=== PATIENT | male | born 1965 | race Asian ===

== ENCOUNTER 2018-01-14 08:04 | Emergency (ER) | payer MEDICAID ==
[~2018-01-14] VITALS: Ht 165.1 cm; Wt 78.6 kg
[~2018-01-14 08:04] MED LIST: DIVA500T69 PO; FLUD25I IM; LORA1TAB3 PO; OMEP20 PO; QUET100T PO; QUET200T PO
[2018-01-14 09:00] LABS: BASOPHILS % (AUTO) 0.4 % (0.0-2.0); EOSINOPHILS % (AUTO) 0.2 % (1.0-6.0); HEMATOCRIT 47.3 % (41-53); HEMOGLOBIN 16.5 g/dL (13.5-17.5); LYMPHOCYTES # (AUTO) 1.4 K/uL (1.0-4.8); LYMPHOCYTES % (AUTO) 15.1 % (22.0-44.0); MEAN CORPUSCULAR HEMOGLOBIN 31.3 pg (26.0-34.0); MEAN CORPUSCULAR HGB CONC 34.8 G/dL (31.0-37.0); MEAN CORPUSCULAR VOLUME 90 fL (80-100); MONOCYTES # (AUTO) 0.4 K/uL (0.1-1.0); MONOCYTES % (AUTO) 4.3 % (2.0-9.0); NEUTROPHILS # (AUTO) 7.5 K/uL (1.8-7.7); PLATELET COUNT (AUTO) 243 K/uL (150-450); RED BLOOD CELL COUNT(AUTO) 5.26 MIL/uL (4.50-5.90); RED CELL DISTRIBUTION WIDTH 13.7 % (11.5-14.5)
[2018-01-14 09:10] LABS: ANION GAP 9 mmol/L (8-16); CALCIUM, TOTAL 8.8 mg/dL (8.8-10.5); CARBON DIOXIDE 26 mmol/L (22-29); CHLORIDE 103 mmol/L (98-107); CREATININE 1.03 mg/dL (0.60-1.30); GLOMERULAR FILTR. RATE CALC > 60 mL/min (>60); GLUCOSE,RANDOM 133 mg/dL (70-110); SODIUM SERUM 138 mmol/L (136-145); UREA NITROGEN, BLOOD 10 mg/dL (7-18)
[2018-01-14 09:16] LABS: ALANINE AMINOTRANSFERASE 60 U/L (12-78); ALBUMIN 4.3 g/dL (3.4-5.0); ALKALINE PHOSPHATASE 128 U/L (46-116); ASPARTATE AMINOTRANSFERASE 22 U/L (15-37); BILIRUBIN,TOTAL 0.9 mg/dL (0.1-1.0); LIPASE 106 U/L (73-393); TOTAL PROTEIN, SERUM 8.4 g/dL (6.4-8.2)
[2018-01-14 09:17] LABS: BILIRUBIN,URINE NEGATIVE (NEGATIVE); GLUCOSE, URINE (UA) NEGATIVE (NEGATIVE); KETONES,URINE NEGATIVE (NEGATIVE); LEUKOCYTE ESTERASE ,URINE NEGATIVE (NEGATIVE); NITRATE,URINE NEGATIVE (NEGATIVE); OCCULT BLOOD,URINE MODERATE (NEGATIVE); PROTEIN,URINE TRACE (NEGATIVE); UROBILINOGEN,URINE 0.2 mg/dL (<=1.0)
[2018-01-14 09:20] LABS: APPEARANCE,URINE HAZY (CLEAR); BACTERIA,URINE Few /HPF (None Seen); WBC,URINE 0-2 /HPF (0-5)
[2018-01-14 09:21] LABS: SQUAMOUS EPITHELIAL CELL,UR Few /LPF (None Seen)
[2018-01-14] MEDS ORDERED: SODIUM CHLORIDE 0.9% 500 ML IV ONE (09:45)
[2018-01-14] MEDS ORDERED: PHENOBARB/HYOSCY/ATROPINE/SCOP 5 ML UDCUP ELIXIR PO ONE (11:45)
[2018-01-14 13:55] VITALS: BP 139/95
== END 2018-01-14 14:08 | disposition home or self-care (01) ==
LOC: EMS 08:05
DX: R14.0 Abdominal distension (gaseous) (principal); F17.210 Nicotine dependence, cigarettes, uncomplicated
CPT/HCPCS: 36415; 71045; 74176; 80053; 81001; 83690; 85025; 93005; 96360; 99285; J7040

== ENCOUNTER 2019-04-21 03:54 | Emergency (ER) | payer MEDICAID ==
[~2019-04-21] VITALS: Ht 167.6 cm; Wt 68.2 kg
[~2019-04-21 03:54] MED LIST changes: -DIVA500T69 PO; -FLUD25I IM; -LORA1TAB3 PO; -OMEP20 PO
[2019-04-21] MEDS ORDERED: ACETAMINOPHEN 500 MG TABLET PO ONE (04:15)
[2019-04-21] MEDS ORDERED: IBUPROFEN 600 MG TABLET PO ONE (04:15)
[2019-04-21 05:00] VITALS: BP 141/93
== END 2019-04-21 05:25 | disposition home or self-care (01) ==
LOC: EMS 03:55
DX: S76.112A Strain of left quadriceps muscle, fascia and tendon, initial encounter (principal); F41.9 Anxiety disorder, unspecified; F32.9 Major depressive disorder, single episode, unspecified; F20.9 Schizophrenia, unspecified; F17.210 Nicotine dependence, cigarettes, uncomplicated; Z88.5 Allergy status to narcotic agent; Z79.899 Other long term (current) drug therapy; X50.0XXA Overexertion from strenuous movement or load, initial encounter; Y93.89 Activity, other specified; Y92.89 Other specified places as the place of occurrence of the external cause; Y99.8 Other external cause status
CPT/HCPCS: 99406

== ENCOUNTER 2020-05-20 20:02 | Emergency (ER) | payer MEDICAID, OTHER ==
[~2020-05-20] VITALS: Ht 165.1 cm; Wt 68.2 kg
[2020-05-20] MEDS ORDERED: OLAN5TAB2 PO (20:12)
[2020-05-20 21:15] LABS: BASOPHILS % (AUTO) 0.3 % (0.0-2.0); EOSINOPHILS % (AUTO) 1.5 % (1.0-6.0); HEMATOCRIT 51.6 % (41-53); HEMOGLOBIN 17.5 g/dL (13.5-17.5); LYMPHOCYTES # (AUTO) 2.8 K/uL (1.0-4.8); LYMPHOCYTES % (AUTO) 29.3 % (22.0-44.0); MEAN CORPUSCULAR HEMOGLOBIN 31.3 pg (26.0-34.0); MEAN CORPUSCULAR HGB CONC 33.9 G/dL (31.0-37.0); MEAN CORPUSCULAR VOLUME 92 fL (80-100); MONOCYTES # (AUTO) 0.7 K/uL (0.1-1.0); MONOCYTES % (AUTO) 7.3 % (2.0-9.0); NEUTROPHILS # (AUTO) 5.9 K/uL (1.8-7.7); NEUTROPHILS % (AUTO) 61.6 % (40.0-70.0); PLATELET COUNT (AUTO) 265 K/uL (150-450); RED BLOOD CELL COUNT(AUTO) 5.59 MIL/uL (4.50-5.90); RED CELL DISTRIBUTION WIDTH 14.3 % (11.5-14.5)
[2020-05-20 21:27] LABS: ANION GAP 7 mmol/L (8-16); CALCIUM, TOTAL 9.5 mg/dL (8.8-10.5); CARBON DIOXIDE 31 mmol/L (22-29); CHLORIDE 100 mmol/L (98-107); CREATININE 1.15 mg/dL (0.60-1.30); GLOMERULAR FILTR. RATE CALC > 60 mL/min (>60); GLUCOSE,RANDOM 108 mg/dL (70-110); POTASSIUM 3.9 mmol/L (3.5-5.1); SODIUM SERUM 138 mmol/L (136-145); UREA NITROGEN, BLOOD 17 mg/dL (7-18)
[2020-05-20 21:37] LABS: ALANINE AMINOTRANSFERASE 31 U/L (12-78); ALBUMIN 4.1 g/dL (3.4-5.0); ALKALINE PHOSPHATASE 112 U/L (46-116); ASPARTATE AMINOTRANSFERASE 13 U/L (15-37); BILIRUBIN,TOTAL 0.3 mg/dL (0.1-1.0)
[2020-05-20 23:37] LABS: AMPHET/METH SCREEN,URINE NEGATIVE (NEGATIVE); BARBITURATE SCREEN, URINE NEGATIVE (NEGATIVE); BENZODIAZEPINES SCREEN,URINE NEGATIVE (NEGATIVE); CANNABINOID SCREEN,URINE NEGATIVE (NEGATIVE); COCAINE SCREEN,URINE NEGATIVE (NEGATIVE); METHADONE SCREEN, URINE NEGATIVE (NEGATIVE); OPIATE SCREEN,URINE NEGATIVE (NEGATIVE); PHENCYCLIDINE SCREEN,URINE NEGATIVE (NEGATIVE)
[2020-05-21 00:22] VITALS: BP 132/80
[2020-05-21] MEDS ORDERED: HydrOXYzine HCL 50 MG TABLET PO ONE (00:30)
== END 2020-05-21 00:41 | disposition home or self-care (01) ==
LOC: EMS 20:04
DX: G47.00 Insomnia, unspecified (principal); F41.9 Anxiety disorder, unspecified; F32.9 Major depressive disorder, single episode, unspecified; F20.9 Schizophrenia, unspecified; F17.210 Nicotine dependence, cigarettes, uncomplicated; Z88.8 Allergy status to other drugs, medicaments and biological substances
CPT/HCPCS: 36415; 80053; 80307; 85025; 99283; G0480

== ENCOUNTER 2020-10-03 12:53 | Emergency (ER) | payer OTHER ==
[~2020-10-03] VITALS: Ht 165.1 cm; Wt 75.0 kg
[~2020-10-03 12:53] MED LIST changes: +OLAN5TAB2 PO; -QUET100T PO; -QUET200T PO
[2020-10-03] MEDS ORDERED: OLANZapine 5 MG TABLET PO ONE (14:15)
[2020-10-03 14:19] LABS: BASOPHILS % (AUTO) 0.4 % (0.0-2.0); EOSINOPHILS % (AUTO) 0.6 % (1.0-6.0); HEMATOCRIT 48.5 % (41-53); HEMOGLOBIN 16.4 g/dL (13.5-17.5); LYMPHOCYTES # (AUTO) 1.3 K/uL (1.0-4.8); MEAN CORPUSCULAR HEMOGLOBIN 31.2 pg (26.0-34.0); MEAN CORPUSCULAR HGB CONC 33.8 G/dL (31.0-37.0); MEAN CORPUSCULAR VOLUME 92 fL (80-100); MONOCYTES # (AUTO) 0.5 K/uL (0.1-1.0); MONOCYTES % (AUTO) 5.3 % (2.0-9.0); NEUTROPHILS # (AUTO) 7.1 K/uL (1.8-7.7); NEUTROPHILS % (AUTO) 78.7 % (40.0-70.0); PLATELET COUNT (AUTO) 213 K/uL (150-450); RED BLOOD CELL COUNT(AUTO) 5.25 MIL/uL (4.50-5.90)
[2020-10-03 14:30] LABS: ANION GAP 13 mmol/L (8-16); CALCIUM, TOTAL 9.4 mg/dL (8.8-10.5); CARBON DIOXIDE 23 mmol/L (22-29); CHLORIDE 104 mmol/L (98-107); CREATININE 0.93 mg/dL (0.60-1.30); GLOMERULAR FILTR. RATE CALC > 60 mL/min (>60); GLUCOSE,RANDOM 127 mg/dL (70-110); POTASSIUM 4.1 mmol/L (3.5-5.1); SODIUM SERUM 140 mmol/L (136-145); UREA NITROGEN, BLOOD 16 mg/dL (7-18)
[2020-10-03 14:36] LABS: ALANINE AMINOTRANSFERASE 37 U/L (12-78); ALBUMIN 4.1 g/dL (3.4-5.0); ALKALINE PHOSPHATASE 107 U/L (46-116); ASPARTATE AMINOTRANSFERASE 18 U/L (15-37); BILIRUBIN,TOTAL 0.4 mg/dL (0.1-1.0); TOTAL PROTEIN, SERUM 8.1 g/dL (6.4-8.2)
[2020-10-03 14:48] LABS: AMPHET/METH SCREEN,URINE NEGATIVE (NEGATIVE); BARBITURATE SCREEN, URINE NEGATIVE (NEGATIVE); BENZODIAZEPINES SCREEN,URINE NEGATIVE (NEGATIVE); CANNABINOID SCREEN,URINE NEGATIVE (NEGATIVE); COCAINE SCREEN,URINE NEGATIVE (NEGATIVE); METHADONE SCREEN, URINE NEGATIVE (NEGATIVE); OPIATE SCREEN,URINE NEGATIVE (NEGATIVE)
[2020-10-03 14:49] LABS: PHENCYCLIDINE SCREEN,URINE NEGATIVE (NEGATIVE)
[2020-10-03 15:38] VITALS: BP 179/81
== END 2020-10-03 15:49 | disposition home or self-care (01) ==
LOC: EMS 12:57
DX: F20.0 Paranoid schizophrenia (principal)
CPT/HCPCS: 36415; 80053; 80307; 85025; 99284; G0480

== ENCOUNTER 2021-05-22 15:11 | Emergency (ER) | payer OTHER ==
[~2021-05-22] VITALS: Ht 170.2 cm; Wt 68.2 kg
[~2021-05-22 15:11] MED LIST changes: -OLAN5TAB2 PO; +OLAN5TAB52 PO
[2021-05-22 16:54] LABS: APPEARANCE,URINE CLEAR (CLEAR); BILIRUBIN,URINE NEGATIVE (NEGATIVE); GLUCOSE, URINE (UA) NEGATIVE (NEGATIVE); KETONES,URINE TRACE mg/dL (NEGATIVE); LEUKOCYTE ESTERASE ,URINE NEGATIVE (NEGATIVE); NITRATE,URINE NEGATIVE (NEGATIVE); OCCULT BLOOD,URINE NEGATIVE (NEGATIVE); PROTEIN,URINE NEGATIVE (NEGATIVE); UROBILINOGEN,URINE 0.2 mg/dL (<=1.0)
[2021-05-22 17:14] LABS: BACTERIA,URINE None Seen /HPF (None Seen); RBC,URINE None Seen /HPF (0-2); SQUAMOUS EPITHELIAL CELL,UR Rare /LPF (None Seen); WBC,URINE 0-2 /HPF (0-5)
[2021-05-22 17:19] LABS: AMPHET/METH SCREEN,URINE NEGATIVE (NEGATIVE); BARBITURATE SCREEN, URINE NEGATIVE (NEGATIVE); BENZODIAZEPINES SCREEN,URINE NEGATIVE (NEGATIVE); CANNABINOID SCREEN,URINE NEGATIVE (NEGATIVE); COCAINE SCREEN,URINE NEGATIVE (NEGATIVE); METHADONE SCREEN, URINE NEGATIVE (NEGATIVE); OPIATE SCREEN,URINE NEGATIVE (NEGATIVE)
[2021-05-22 17:20] LABS: PHENCYCLIDINE SCREEN,URINE NEGATIVE (NEGATIVE)
[2021-05-22 17:29] LABS: BASOPHILS % (AUTO) 0.3 % (0.0-2.0); EOSINOPHILS % (AUTO) 1.3 % (1.0-6.0); HEMATOCRIT 44.1 % (41-53); HEMOGLOBIN 14.8 g/dL (13.5-17.5); LYMPHOCYTES # (AUTO) 1.9 K/uL (1.0-4.8); LYMPHOCYTES % (AUTO) 27.5 % (22.0-44.0); MEAN CORPUSCULAR HEMOGLOBIN 31.4 pg (26.0-34.0); MEAN CORPUSCULAR HGB CONC 33.6 G/dL (31.0-37.0); MEAN CORPUSCULAR VOLUME 93 fL (80-100); MONOCYTES # (AUTO) 0.5 K/uL (0.1-1.0); MONOCYTES % (AUTO) 6.5 % (2.0-9.0); NEUTROPHILS # (AUTO) 4.6 K/uL (1.8-7.7); NEUTROPHILS % (AUTO) 64.4 % (40.0-70.0); PLATELET COUNT (AUTO) 210 K/uL (150-450); RED BLOOD CELL COUNT(AUTO) 4.72 MIL/uL (4.50-5.90); RED CELL DISTRIBUTION WIDTH 13.9 % (11.5-14.5)
[2021-05-22 17:42] LABS: ANION GAP 7 mmol/L (8-16); CALCIUM, TOTAL 9.1 mg/dL (8.8-10.5); CARBON DIOXIDE 29 mmol/L (22-29); CHLORIDE 104 mmol/L (98-107); CREATININE 0.96 mg/dL (0.60-1.30); GLOMERULAR FILTR. RATE CALC > 60 mL/min (>60); GLUCOSE,RANDOM 110 mg/dL (70-110); POTASSIUM 3.9 mmol/L (3.5-5.1); SODIUM SERUM 140 mmol/L (136-145); UREA NITROGEN, BLOOD 16 mg/dL (7-18)
[2021-05-22 17:58] VITALS: BP 159/95
[2021-05-22 18:06] LABS: ALANINE AMINOTRANSFERASE 49 U/L (12-78); ALBUMIN 3.9 g/dL (3.4-5.0); ALKALINE PHOSPHATASE 92 U/L (46-116); ASPARTATE AMINOTRANSFERASE 19 U/L (15-37); BILIRUBIN,TOTAL 0.3 mg/dL (0.1-1.0); CREATINE KINASE, TOTAL ONLY 134 U/L (39-308); TOTAL PROTEIN, SERUM 7.2 g/dL (6.4-8.2)
== END 2021-05-22 19:03 | disposition home or self-care (01) ==
LOC: EMS 15:13
DX: F98.8 Other specified behavioral and emotional disorders with onset usually occurring in childhood and adolescence (principal)
CPT/HCPCS: 36415; 80053; 80307; 81001; 82550; 84484; 85025; 99283; G0480

== ENCOUNTER 2021-05-24 09:56 | Emergency (ER) | payer OTHER ==
[~2021-05-24] VITALS: Ht 165.1 cm; Wt 68.2 kg
[2021-05-24 11:44] VITALS: BP 140/88
[2021-05-24 12:11] LABS: BASOPHILS % (AUTO) 0.3 % (0.0-2.0); EOSINOPHILS % (AUTO) 0.6 % (1.0-6.0); HEMATOCRIT 46.9 % (41-53); HEMOGLOBIN 15.9 g/dL (13.5-17.5); LYMPHOCYTES # (AUTO) 1.5 K/uL (1.0-4.8); MEAN CORPUSCULAR HGB CONC 33.9 G/dL (31.0-37.0); MEAN CORPUSCULAR VOLUME 94 fL (80-100); MONOCYTES # (AUTO) 0.4 K/uL (0.1-1.0); MONOCYTES % (AUTO) 5.5 % (2.0-9.0); NEUTROPHILS # (AUTO) 6.2 K/uL (1.8-7.7); NEUTROPHILS % (AUTO) 75.6 % (40.0-70.0); PLATELET COUNT (AUTO) 228 K/uL (150-450); RED BLOOD CELL COUNT(AUTO) 4.98 MIL/uL (4.50-5.90); RED CELL DISTRIBUTION WIDTH 13.8 % (11.5-14.5)
[2021-05-24 12:15] LABS: ANION GAP 7 mmol/L (8-16); CALCIUM, TOTAL 9.5 mg/dL (8.8-10.5); CARBON DIOXIDE 31 mmol/L (22-29); CHLORIDE 103 mmol/L (98-107); CREATININE 0.99 mg/dL (0.60-1.30); GLOMERULAR FILTR. RATE CALC > 60 mL/min (>60); GLUCOSE,RANDOM 122 mg/dL (70-110); POTASSIUM 5.1 mmol/L (3.5-5.1); SODIUM SERUM 141 mmol/L (136-145); UREA NITROGEN, BLOOD 22 mg/dL (7-18)
[2021-05-24 12:20] LABS: ALANINE AMINOTRANSFERASE 50 U/L (12-78); ALBUMIN 4.2 g/dL (3.4-5.0); ALKALINE PHOSPHATASE 109 U/L (46-116); ASPARTATE AMINOTRANSFERASE 15 U/L (15-37); BILIRUBIN,TOTAL 0.2 mg/dL (0.1-1.0); TOTAL PROTEIN, SERUM 8.2 g/dL (6.4-8.2)
[2021-05-24] MEDS ORDERED: QUEtiapine FUMARATE 100 MG TABLET PO ONE (13:15)
[2021-05-24 13:43] LABS: COVID AG,FIA SOURCE NASAL SWAB
== END 2021-05-24 14:07 | disposition home or self-care (01) ==
LOC: EMS 09:56
DX: F41.9 Anxiety disorder, unspecified (principal); F32.9 Major depressive disorder, single episode, unspecified; F20.9 Schizophrenia, unspecified; Z20.822 Contact with and (suspected) exposure to COVID-19; Z88.8 Allergy status to other drugs, medicaments and biological substances; Z87.891 Personal history of nicotine dependence
CPT/HCPCS: 36415; 80053; 85025; 87426; 99283; G0480

== ENCOUNTER 2021-05-27 19:07 | Emergency (ER) | payer OTHER ==
[~2021-05-27] VITALS: Ht 165.1 cm; Wt 68.2 kg
[2021-05-27 21:02] LABS: BASOPHILS % (AUTO) 0.3 % (0.0-2.0); EOSINOPHILS % (AUTO) 0.6 % (1.0-6.0); HEMATOCRIT 45.6 % (41-53); HEMOGLOBIN 15.2 g/dL (13.5-17.5); LYMPHOCYTES # (AUTO) 1.7 K/uL (1.0-4.8); LYMPHOCYTES % (AUTO) 18.6 % (22.0-44.0); MEAN CORPUSCULAR HEMOGLOBIN 31.2 pg (26.0-34.0); MEAN CORPUSCULAR HGB CONC 33.3 G/dL (31.0-37.0); MEAN CORPUSCULAR VOLUME 94 fL (80-100); MONOCYTES # (AUTO) 0.5 K/uL (0.1-1.0); MONOCYTES % (AUTO) 5.2 % (2.0-9.0); NEUTROPHILS # (AUTO) 6.7 K/uL (1.8-7.7); NEUTROPHILS % (AUTO) 75.3 % (40.0-70.0); PLATELET COUNT (AUTO) 225 K/uL (150-450); RED BLOOD CELL COUNT(AUTO) 4.87 MIL/uL (4.50-5.90); RED CELL DISTRIBUTION WIDTH 13.8 % (11.5-14.5)
[2021-05-27 21:11] LABS: ANION GAP 8 mmol/L (8-16); CALCIUM, TOTAL 8.7 mg/dL (8.8-10.5); CARBON DIOXIDE 30 mmol/L (22-29); CHLORIDE 105 mmol/L (98-107); CREATININE 1.07 mg/dL (0.60-1.30); GLOMERULAR FILTR. RATE CALC > 60 mL/min (>60); GLUCOSE,RANDOM 121 mg/dL (70-110); POTASSIUM 4.6 mmol/L (3.5-5.1); SODIUM SERUM 143 mmol/L (136-145); UREA NITROGEN, BLOOD 17 mg/dL (7-18)
[2021-05-27] MEDS ORDERED: QUEtiapine FUMARATE 100 MG TABLET PO ONE (21:15)
[2021-05-27 21:17] LABS: ALANINE AMINOTRANSFERASE 59 U/L (12-78); ALKALINE PHOSPHATASE 98 U/L (46-116); ASPARTATE AMINOTRANSFERASE 25 U/L (15-37); BILIRUBIN,TOTAL 0.5 mg/dL (0.1-1.0); TOTAL PROTEIN, SERUM 7.7 g/dL (6.4-8.2)
[2021-05-27 21:36] LABS: COVID AG,FIA SOURCE NASOPHARYNGEAL
[2021-05-27] MEDS ORDERED: LORazepam 1 MG TABLET PO ONE (22:30)
[2021-05-27 22:36] VITALS: BP 127/65
== END 2021-05-27 23:04 | disposition home or self-care (01) ==
LOC: EMS 19:42
DX: F20.9 Schizophrenia, unspecified (principal); Z20.822 Contact with and (suspected) exposure to COVID-19; F41.9 Anxiety disorder, unspecified
CPT/HCPCS: 36415; 80053; 85025; 87426; 99284; G0480

== ENCOUNTER 2021-06-27 21:07 | Emergency (ER) | payer OTHER ==
[~2021-06-27] VITALS: Ht 170.2 cm; Wt 68.2 kg
[2021-06-27] MEDS ORDERED: POTASSIUM CHLORIDE 20 MEQ ER TABLET PO ONE (23:15)
[2021-06-27] MEDS ORDERED: MAGNESIUM OXIDE 400 MG TABLET PO ONE (23:15)
[2021-06-27 23:30] VITALS: BP 141/84
== END 2021-06-27 23:50 | disposition home or self-care (01) ==
LOC: EMS 21:09
DX: R25.2 Cramp and spasm (principal); F32.9 Major depressive disorder, single episode, unspecified; F20.9 Schizophrenia, unspecified; F41.9 Anxiety disorder, unspecified; Z87.891 Personal history of nicotine dependence; Z88.8 Allergy status to other drugs, medicaments and biological substances
CPT/HCPCS: 99283

== ENCOUNTER 2022-06-18 16:03 | Emergency (ER) | payer OTHER ==
[~2022-06-18] VITALS: Ht 170.2 cm; Wt 68.2 kg
[2022-06-18 18:10] LABS: BASOPHILS % (AUTO) 0.3 % (0.0-2.0); EOSINOPHILS % (AUTO) 0.6 % (1.0-6.0); HEMATOCRIT 46.5 % (41-53); HEMOGLOBIN 15.4 g/dL (13.5-17.5); LYMPHOCYTES # (AUTO) 1.8 K/uL (1.0-4.8); LYMPHOCYTES % (AUTO) 20.3 % (22.0-44.0); MEAN CORPUSCULAR HGB CONC 33.2 G/dL (31.0-37.0); MEAN CORPUSCULAR VOLUME 93 fL (80-100); MONOCYTES # (AUTO) 0.5 K/uL (0.1-1.0); MONOCYTES % (AUTO) 5.8 % (2.0-9.0); NEUTROPHILS # (AUTO) 6.3 K/uL (1.8-7.7); PLATELET COUNT (AUTO) 213 K/uL (150-450); RED BLOOD CELL COUNT(AUTO) 4.99 MIL/uL (4.50-5.90); RED CELL DISTRIBUTION WIDTH 13.2 % (11.5-14.5)
[2022-06-18 18:19] LABS: ANION GAP 6 mmol/L (8-16); CALCIUM, TOTAL 9.5 mg/dL (8.8-10.5); CARBON DIOXIDE 31 mmol/L (22-29); CHLORIDE 102 mmol/L (98-107); CREATININE 1.05 mg/dL (0.60-1.30); GLUCOSE,RANDOM 131 mg/dL (70-110); POTASSIUM 3.9 mmol/L (3.5-5.1); SODIUM SERUM 139 mmol/L (136-145); UREA NITROGEN, BLOOD 20 mg/dL (7-18)
[2022-06-18 18:19] LABS: AMPHET/METH SCREEN,URINE NEGATIVE (NEGATIVE); BARBITURATE SCREEN, URINE NEGATIVE (NEGATIVE); BENZODIAZEPINES SCREEN,URINE NEGATIVE (NEGATIVE); CANNABINOID SCREEN,URINE NEGATIVE (NEGATIVE); COCAINE SCREEN,URINE NEGATIVE (NEGATIVE); METHADONE SCREEN, URINE NEGATIVE (NEGATIVE); OPIATE SCREEN,URINE NEGATIVE (NEGATIVE)
[2022-06-18 18:20] LABS: GLOMERULAR FILTR. RATE CALC > 60 mL/min (>60)
[2022-06-18 18:20] LABS: PHENCYCLIDINE SCREEN,URINE NEGATIVE (NEGATIVE)
[2022-06-18 18:24] LABS: ALANINE AMINOTRANSFERASE 23 U/L (12-78); ALBUMIN 4.1 g/dL (3.4-5.0); ALKALINE PHOSPHATASE 102 U/L (46-116); ASPARTATE AMINOTRANSFERASE 11 U/L (15-37); BILIRUBIN,TOTAL 0.2 mg/dL (0.1-1.0); TOTAL PROTEIN, SERUM 7.7 g/dL (6.4-8.2)
[2022-06-18] MEDS ORDERED: QUET200T PO (18:24)
[2022-06-18 18:34] VITALS: BP 133/90
== END 2022-06-18 19:00 | disposition home or self-care (01) ==
LOC: EMS 16:08
DX: F20.9 Schizophrenia, unspecified (principal); F17.210 Nicotine dependence, cigarettes, uncomplicated; Z88.8 Allergy status to other drugs, medicaments and biological substances; Z76.0 Encounter for issue of repeat prescription
CPT/HCPCS: 99283; 80053; 85025; 36415; 80307; G0480

== ENCOUNTER 2022-12-27 09:13 | Inpatient (IN) | payer MEDICAID ==
[~2022-12-27] VITALS: Ht 165.1 cm; Wt 77.2 kg
[~2022-12-27 09:13] MED LIST changes: +QUET200T PO
[2022-12-27] MEDS ORDERED: HALOPERIDOL 5 MG TABLET PO PRN (10:00)
[2022-12-27 10:01] LABS: GLUCOMETER DEV NAME(LOC) POC.BV
[2022-12-27] MEDS: LORazepam 2 MG TABLET PO PRN ×2 (11:11→20:06)
[2022-12-27] MEDS ORDERED: QUEtiapine FUMARATE 100 MG TABLET PO PRN (13:45)
[2022-12-27 14:14] VITALS: BP 141/77
[2022-12-27 16:06] VITALS: BP 134/82
[2022-12-27 18:06] LABS: GLUCOMETER DEV NAME(LOC) POC.BV
[2022-12-27] MEDS: QUEtiapine FUMARATE 200 MG TABLET PO SCH (20:06)
[2022-12-27 20:25] VITALS: BP 139/82
[2022-12-28] MEDS ORDERED: ACETAMINOPHEN 325 MG TABLET PO PRN (06:30)
[2022-12-28] MEDS ORDERED: LOPERAMIDE HCL 2 MG CAPSULE PO PRN (06:30)
[2022-12-28] MEDS ORDERED: ALBUTEROL SULFATE HFA 90 MCG/PUFF 8 GM INHALER IH PRN (06:30)
[2022-12-28] MEDS ORDERED: ONDANSETRON HCL 4 MG TABLET PO PRN (06:30)
[2022-12-28] MEDS ORDERED: NICOTINE 14 MG/24 HOUR PATCH TD PRN (06:30)
[2022-12-28] MEDS ORDERED: CloNIDine HCL 0.1 MG TABLET PO PRN (06:30)
[2022-12-28] MEDS ORDERED: DOCUSATE SODIUM 100 MG CAPSULE PO PRN (06:30)
[2022-12-28] MEDS ORDERED: GuaiFENesin/D-METHORPHAN [SUGAR-FREE] 200-20MG/10 ML SYRUP UDCUP PO PRN (06:30)
[2022-12-28] MEDS ORDERED: PETROLATUM,WHITE 28 GM JELLY TP PRN (06:30)
[2022-12-28] MEDS ORDERED: IBUPROFEN 400 MG TABLET PO PRN (06:30)
[2022-12-28] MEDS ORDERED: MAG HYDROX/AL HYDROX/SIMETH ES 30 ML SUSPENSION UDCUP PO PRN (06:30)
[2022-12-28] MEDS ORDERED: MAGNESIUM HYDROXIDE SUSPENSION 30 ML UDCUP PO PRN (06:30)
[2022-12-28 07:29] LABS: BASOPHILS % (AUTO) 0.5 % (0.0-2.0); EOSINOPHILS % (AUTO) 1.3 % (1.0-6.0); HEMATOCRIT 44.5 % (41-53); HEMOGLOBIN 14.6 g/dL (13.5-17.5); LYMPHOCYTES # (AUTO) 2.1 K/uL (1.0-4.8); LYMPHOCYTES % (AUTO) 31.3 % (22.0-44.0); MEAN CORPUSCULAR HEMOGLOBIN 30.7 pg (26.0-34.0); MEAN CORPUSCULAR HGB CONC 32.8 G/dL (31.0-37.0); MEAN CORPUSCULAR VOLUME 94 fL (80-100); MONOCYTES # (AUTO) 0.5 K/uL (0.1-1.0); MONOCYTES % (AUTO) 7.5 % (2.0-9.0); NEUTROPHILS # (AUTO) 3.9 K/uL (1.8-7.7); NEUTROPHILS % (AUTO) 59.4 % (40.0-70.0); PLATELET COUNT (AUTO) 193 K/uL (150-450); RED BLOOD CELL COUNT(AUTO) 4.75 MIL/uL (4.50-5.90); RED CELL DISTRIBUTION WIDTH 13.6 % (11.5-14.5)
[2022-12-28 08:01] LABS: ALANINE AMINOTRANSFERASE 30 U/L (12-78); ALBUMIN 3.4 g/dL (3.4-5.0); ALKALINE PHOSPHATASE 79 U/L (46-116); ANION GAP 6 mmol/L (8-16); ASPARTATE AMINOTRANSFERASE 12 U/L (15-37); BILIRUBIN,TOTAL 0.4 mg/dL (0.1-1.0); CALCIUM, TOTAL 8.9 mg/dL (8.8-10.5); CARBON DIOXIDE 30 mmol/L (22-29); CHLORIDE 103 mmol/L (98-107); CHOL/HDL RATIO 4.9 (4.2-7.3); CHOLESTEROL 199 mg/dL (131-200); CREATININE 0.78 mg/dL (0.60-1.30); FREE T4 (FREE THYROXINE) 1.07 ng/dL (0.76-1.46); GLOMERULAR FILTR. RATE CALC > 60 mL/min (>60); GLUCOSE,RANDOM 100 mg/dL (70-110); HDL CHOLESTEROL 41 mg/dL (40-60); LDL CHOL (CALC.) 101 mg/dL (0-130); POTASSIUM 4.1 mmol/L (3.5-5.1); SODIUM SERUM 139 mmol/L (136-145); THYROID STIMULATING HORMONE 0.95 uIU/mL (0.36-3.74); TOTAL PROTEIN, SERUM 6.8 g/dL (6.4-8.2); TRIGLYCERIDES 287 mg/dL (15-150)
[2022-12-28 08:07] VITALS: BP 138/87
[2022-12-28] MEDS: LORazepam 2 MG TABLET PO PRN ×2 (10:22→15:09)
[2022-12-28] MEDS: QUEtiapine FUMARATE 200 MG TABLET PO SCH (20:17)
[2022-12-28 20:18] VITALS: BP 107/72
[2022-12-29] MEDS: LORazepam 2 MG TABLET PO PRN ×2 (08:08→12:34)
[2022-12-29 09:15] VITALS: BP 105/63
[2022-12-29 12:28] LABS: APPEARANCE,URINE CLEAR (CLEAR); BILIRUBIN,URINE NEGATIVE (NEGATIVE); GLUCOSE, URINE (UA) >=1000 mg/dL (NEGATIVE); KETONES,URINE NEGATIVE (NEGATIVE); LEUKOCYTE ESTERASE ,URINE NEGATIVE (NEGATIVE); NITRATE,URINE NEGATIVE (NEGATIVE); OCCULT BLOOD,URINE NEGATIVE (NEGATIVE); PH,URINE 5.5 (5.0-8.0); PROTEIN,URINE NEGATIVE (NEGATIVE); SPECIFIC GRAVITIY, URINE 1.011 (1.003-1.030); UROBILINOGEN,URINE <=1.0 mg/dL (<=1.0)
[2022-12-29 12:42] LABS: AMPHET/METH SCREEN,URINE NEGATIVE (NEGATIVE); BARBITURATE SCREEN, URINE NEGATIVE (NEGATIVE); BENZODIAZEPINES SCREEN,URINE NEGATIVE (NEGATIVE); CANNABINOID SCREEN,URINE NEGATIVE (NEGATIVE); COCAINE SCREEN,URINE NEGATIVE (NEGATIVE); METHADONE SCREEN, URINE NEGATIVE (NEGATIVE); OPIATE SCREEN,URINE NEGATIVE (NEGATIVE); PHENCYCLIDINE SCREEN,URINE NEGATIVE (NEGATIVE)
[2022-12-29 12:54] LABS: BACTERIA,URINE None Seen /HPF (None Seen); RBC,URINE None Seen /HPF (0-2); WBC,URINE None Seen /HPF (0-5)
[2022-12-29] MEDS: QUEtiapine FUMARATE 200 MG TABLET PO SCH (20:28)
[2022-12-29] MEDS: ZOLPIDEM TARTRATE 10 MG TABLET PO PRN (20:28)
[2022-12-30] MEDS: LORazepam 2 MG TABLET PO PRN ×3 (08:15→20:51)
[2022-12-30 08:51] VITALS: BP 169/98
[2022-12-30 20:25] VITALS: BP 117/76
[2022-12-30] MEDS: ZOLPIDEM TARTRATE 10 MG TABLET PO PRN (20:51)
[2022-12-30] MEDS: QUEtiapine FUMARATE 200 MG TABLET PO SCH (20:54)
[2022-12-31 08:28] VITALS: BP 143/90
[2022-12-31 20:36] VITALS: BP 150/96
[2022-12-31] MEDS: QUEtiapine FUMARATE 200 MG TABLET PO SCH (21:18)
[2022-12-31 21:28] VITALS: BP 138/96
[2022-12-31] MEDS: LORazepam 2 MG TABLET PO PRN (21:31)
[2023-01-01 08:08] VITALS: BP 127/81
[2023-01-01] MEDS: LORazepam 2 MG TABLET PO PRN ×2 (16:14→20:14)
[2023-01-01 20:11] VITALS: BP 131/78
[2023-01-01] MEDS: QUEtiapine FUMARATE 200 MG TABLET PO SCH (20:13)
[2023-01-02 08:45] VITALS: BP 153/91
[2023-01-02] MEDS: LORazepam 2 MG TABLET PO PRN ×2 (16:10→20:28)
[2023-01-02] MEDS: QUEtiapine FUMARATE 200 MG TABLET PO SCH (20:28)
[2023-01-02 21:35] VITALS: BP 143/98
[2023-01-03] MEDS ORDERED: QUET200T30 PO (05:51)
[2023-01-03 08:31] VITALS: BP 152/81
== END 2023-01-03 12:45 | disposition home or self-care (01) | DRG 750 ==
LOC: B3A 10:15
PROVIDERS: ADMIT Psychiatry & Neurology Psychiatry; ATTEND Psychiatry & Neurology Psychiatry
DX: F20.0 Paranoid schizophrenia (principal); G47.00 Insomnia, unspecified; Z20.822 Contact with and (suspected) exposure to COVID-19; J44.9 Chronic obstructive pulmonary disease, unspecified; Z79.899 Other long term (current) drug therapy; Z81.8 Family history of other mental and behavioral disorders; Z88.8 Allergy status to other drugs, medicaments and biological substances
CPT/HCPCS: 80053; 80061; 80307; 81001; 83036; 84436; 84439; 84443; 85025; 86592; G0480

== ENCOUNTER 2023-09-23 04:02 | Inpatient (IN) | payer MEDICAID, OTHER ==
[~2023-09-23] VITALS: Ht 170.2 cm; Wt 71.0 kg
[~2023-09-23 04:02] MED LIST changes: -OLAN5TAB52 PO; -QUET200T PO; +QUET200T30 PO
[2023-09-23 04:48] LABS: PH,URINE DRUG SCREEN 6.5 (5.0-8.0)
[2023-09-23 04:51] LABS: AMPHET/METH SCREEN,URINE NEGATIVE (NEGATIVE); BARBITURATE SCREEN, URINE NEGATIVE (NEGATIVE); BENZODIAZEPINES SCREEN,URINE NEGATIVE (NEGATIVE); CANNABINOID SCREEN,URINE NEGATIVE (NEGATIVE); COCAINE SCREEN,URINE NEGATIVE (NEGATIVE); METHADONE SCREEN, URINE NEGATIVE (NEGATIVE); OPIATE SCREEN,URINE NEGATIVE (NEGATIVE); PHENCYCLIDINE SCREEN,URINE NEGATIVE (NEGATIVE)
[2023-09-23 04:52] LABS: ALCOHOL, URINE DRUG SCREEN NEGATIVE (NEGATIVE)
[2023-09-23] MEDS ORDERED: HALOPERIDOL LACTATE 5 MG/ML VIAL ONE (05:09)
[2023-09-23] MEDS ORDERED: DiphenhydrAMINE HCL 50 MG/ML VIAL ONE (05:09)
[2023-09-23] MEDS ORDERED: LORazepam 2 MG/ML VIAL ONE (05:09)
[2023-09-23 05:10] LABS: COVID AG,FIA SOURCE NASAL SWAB
[2023-09-23] MEDS: LORazepam 2 MG/ML VIAL IM ONE (05:21)
[2023-09-23] MEDS: DiphenhydrAMINE HCL 50 MG/ML VIAL IM ONE (05:22)
[2023-09-23] MEDS: HALOPERIDOL LACTATE 5 MG/ML VIAL IM ONE (05:27)
[2023-09-23 05:30] LABS: SARS-COV2 (COVID) ANTIGEN,FIA Negative (Negative)
[2023-09-23] MEDS ORDERED: LORazepam 1 MG TABLET PO PRN (05:45)
[2023-09-23 08:36] LABS: BASOPHILS % (AUTO) 0.2 % (0.0-2.0); EOSINOPHILS % (AUTO) 0.3 % (1.0-6.0); HEMATOCRIT 42.5 % (41-53); HEMOGLOBIN 14.2 g/dL (13.5-17.5); LYMPHOCYTES # (AUTO) 1.2 K/uL (1.0-4.8); LYMPHOCYTES % (AUTO) 13.6 % (22.0-44.0); MEAN CORPUSCULAR HEMOGLOBIN 31.2 pg (26.0-34.0); MEAN CORPUSCULAR HGB CONC 33.4 G/dL (31.0-37.0); MEAN CORPUSCULAR VOLUME 94 fL (80-100); MONOCYTES # (AUTO) 0.3 K/uL (0.1-1.0); MONOCYTES % (AUTO) 3.9 % (2.0-9.0); NEUTROPHILS # (AUTO) 7.2 K/uL (1.8-7.7); PLATELET COUNT (AUTO) 211 K/uL (150-450); RED BLOOD CELL COUNT(AUTO) 4.55 MIL/uL (4.50-5.90); RED CELL DISTRIBUTION WIDTH 13.3 % (11.5-14.5); WHITE BLOOD COUNT (AUTO) 8.8 K/uL (4.5-11.0)
[2023-09-23 08:48] LABS: ANION GAP 6 mmol/L (8-16); CARBON DIOXIDE 27 mmol/L (22-29); CHLORIDE 105 mmol/L (98-107); CREATININE 0.99 mg/dL (0.60-1.30); GLOMERULAR FILTR. RATE CALC > 60 mL/min (>60); GLUCOSE,RANDOM 107 mg/dL (70-110); POTASSIUM 3.7 mmol/L (3.5-5.1); SODIUM SERUM 138 mmol/L (136-145); UREA NITROGEN, BLOOD 17 mg/dL (7-18)
[2023-09-23 08:49] LABS: ALCOHOL, BLOOD (SERUM) < 3 mg/dL (0-10)
[2023-09-23 08:58] LABS: ALANINE AMINOTRANSFERASE 21 U/L (12-78); ALBUMIN 3.6 g/dL (3.4-5.0); ALKALINE PHOSPHATASE 79 U/L (46-116); ASPARTATE AMINOTRANSFERASE 17 U/L (15-37); BILIRUBIN,TOTAL 0.3 mg/dL (0.1-1.0); TOTAL PROTEIN, SERUM 6.8 g/dL (6.4-8.2)
[2023-09-23] MEDS: LORazepam 2 MG TABLET PO PRN (12:08)
[2023-09-23] MEDS: BENZONATATE 100 MG CAPSULE PO ONE (19:48)
[2023-09-23] MEDS: AmLODIPine BESYLATE 10 MG TABLET PO ONE (23:24)
[2023-09-24 03:49] VITALS: BP 121/100; PULSE 93; RESP 18; TEMP 98; O2SAT 96
[2023-09-24] MEDS: INFLUENZA VIRUS VACCINE QVS 2023-24 (6MO+)/PF 60 MCG/0.5 ML SYRINGE IM. ONE (04:15)
[2023-09-24] MEDS: PNEUMOCOCCAL VACCINE POLYVALENT 0.5 ML SYRINGE [PPSV23] IM. ONE (04:15)
[2023-09-24] MEDS ORDERED: IBUPROFEN 400 MG TABLET PO PRN (06:30)
[2023-09-24] MEDS ORDERED: LOPERAMIDE HCL 2 MG CAPSULE PO PRN (06:30)
[2023-09-24] MEDS ORDERED: ACETAMINOPHEN 325 MG TABLET PO PRN (06:30)
[2023-09-24] MEDS ORDERED: ONDANSETRON HCL 4 MG TABLET PO PRN (06:30)
[2023-09-24] MEDS ORDERED: MAG HYDROX/ALUMINUM HYD/SIMETH ES 30 ML SUSPENSION UDCUP PO PRN (06:30)
[2023-09-24] MEDS ORDERED: CloNIDine HCL 0.1 MG TABLET PO PRN (06:30)
[2023-09-24] MEDS ORDERED: DOCUSATE SODIUM 100 MG CAPSULE PO PRN (06:30)
[2023-09-24] MEDS ORDERED: NICOTINE 14 MG/24 HOUR PATCH TD PRN (06:30)
[2023-09-24] MEDS ORDERED: GuaiFENesin/D-METHORPHAN [SUGAR-FREE] 200-20MG/10 ML SYRUP UDCUP PO PRN (06:30)
[2023-09-24] MEDS ORDERED: PETROLATUM,WHITE 28 GM JELLY TP PRN (06:30)
[2023-09-24] MEDS ORDERED: MAGNESIUM HYDROXIDE SUSPENSION 30 ML UDCUP PO PRN (06:30)
[2023-09-24 08:38] VITALS: BP 145/95; PULSE 95; RESP 18; TEMP 97.5; O2SAT 96
[2023-09-24] MEDS: QUEtiapine FUMARATE 25 MG TABLET PO SCH (10:18)
[2023-09-24 20:14] VITALS: BP 131/82; PULSE 98; RESP 18; TEMP 97.9; O2SAT 98
[2023-09-24] MEDS: QUEtiapine FUMARATE 200 MG TABLET PO SCH (21:40)
[2023-09-25 08:39] VITALS: BP 145/82; PULSE 74; RESP 18; TEMP 98.2; O2SAT 95
[2023-09-25 20:12] VITALS: BP 116/63; PULSE 81; RESP 20; TEMP 97.1; O2SAT 94
[2023-09-26] MEDS: ALBUTEROL SULFATE HFA 90 MCG/PUFF 8 GM INHALER IH PRN (03:20)
[2023-09-26 08:30] VITALS: BP 116/91; PULSE 84; RESP 17; TEMP 97.7; O2SAT 98
[2023-09-26 20:44] VITALS: BP 124/78; PULSE 78; RESP 20; TEMP 97.6; O2SAT 98
[2023-09-27 00:19] VITALS: BP 119/75; PULSE 80; RESP 18; TEMP 97.7; O2SAT 96
[2023-09-27 08:21] VITALS: BP 128/76; PULSE 67; RESP 18; TEMP 98; O2SAT 98
[2023-09-27 20:47] VITALS: BP 150/87; PULSE 81; RESP 18; TEMP 98.2; O2SAT 95
[2023-09-28 08:11] VITALS: BP 126/80; PULSE 87; RESP 18; TEMP 98; O2SAT 100
[2023-09-28] MEDS: NICOTINE 7 MG/24 HOUR PATCH TD PRN (16:01)
[2023-09-28 20:00] VITALS: BP 124/83; PULSE 86; RESP 18; TEMP 97.4; O2SAT 95
[2023-09-29 08:14] VITALS: BP 132/93; PULSE 85; RESP 18; TEMP 98; O2SAT 95
[2023-09-30 00:15] VITALS: BP 153/94; PULSE 80; RESP 18; TEMP 96.9; O2SAT 96
[2023-09-30 08:36] VITALS: BP 148/88; PULSE 80; RESP 20; TEMP 97.4; O2SAT 99
[2023-09-30 20:26] VITALS: BP 131/80; PULSE 84; RESP 20; TEMP 97.2; O2SAT 94
[2023-10-01 08:28] VITALS: BP 151/113; PULSE 76; RESP 16; TEMP 97.4; O2SAT 99
[2023-10-01 20:25] VITALS: BP 115/76; PULSE 84; RESP 17; TEMP 97.8; O2SAT 98
[2023-10-02 08:26] VITALS: BP 145/97; PULSE 81; RESP 18; TEMP 97.7; O2SAT 98
[2023-10-02] MEDS ORDERED: QUET50TA15 PO (12:02)
[2023-10-02] MEDS ORDERED: QUET25TA36 PO (13:09)
== END 2023-10-02 13:10 | disposition home or self-care (01) | DRG 750 ==
LOC: EMS 04:04 → B2S 17:22
PROVIDERS: ADMIT Psychiatry & Neurology Psychiatry; ATTEND Psychiatry & Neurology Psychiatry
PROC: GZHZZZZ Group Psychotherapy (ICD-10-PCS; principal; 2023-09-25)
DX: F20.0 Paranoid schizophrenia (principal); F17.210 Nicotine dependence, cigarettes, uncomplicated; F41.9 Anxiety disorder, unspecified; Z20.822 Contact with and (suspected) exposure to COVID-19; G47.00 Insomnia, unspecified; J44.9 Chronic obstructive pulmonary disease, unspecified; Z79.899 Other long term (current) drug therapy; Z88.8 Allergy status to other drugs, medicaments and biological substances
CPT/HCPCS: 80053; 80307; 85025; G0480; J1200; J1630; J2060; J3535

== ENCOUNTER 2023-10-05 21:36 | Inpatient (IN) | payer MEDICAID, OTHER ==
[~2023-10-05] VITALS: Ht 170.2 cm; Wt 74.6 kg
[~2023-10-05 21:36] MED LIST changes: +QUET25TA36 PO; +QUET50TA15 PO
[2023-10-05 22:07] LABS: PH,URINE DRUG SCREEN 5.5 (5.0-8.0)
[2023-10-05 22:14] LABS: ALCOHOL, URINE DRUG SCREEN NEGATIVE (NEGATIVE); AMPHET/METH SCREEN,URINE NEGATIVE (NEGATIVE); BARBITURATE SCREEN, URINE NEGATIVE (NEGATIVE); BENZODIAZEPINES SCREEN,URINE NEGATIVE (NEGATIVE); CANNABINOID SCREEN,URINE NEGATIVE (NEGATIVE); COCAINE SCREEN,URINE NEGATIVE (NEGATIVE); METHADONE SCREEN, URINE NEGATIVE (NEGATIVE); OPIATE SCREEN,URINE NEGATIVE (NEGATIVE); PHENCYCLIDINE SCREEN,URINE NEGATIVE (NEGATIVE)
[2023-10-05 23:24] LABS: COVID AG,FIA SOURCE NASAL SWAB
[2023-10-05 23:41] LABS: SARS-COV2 (COVID) ANTIGEN,FIA Negative (Negative)
[2023-10-06 00:55] LABS: ANION GAP 9 mmol/L (8-16); CALCIUM, TOTAL 8.9 mg/dL (8.8-10.5); CARBON DIOXIDE 26 mmol/L (22-29); CHLORIDE 104 mmol/L (98-107); CREATININE 0.84 mg/dL (0.60-1.30); GLOMERULAR FILTR. RATE CALC > 60 mL/min (>60); GLUCOSE,RANDOM 120 mg/dL (70-110); POTASSIUM 3.9 mmol/L (3.5-5.1); SODIUM SERUM 139 mmol/L (136-145); UREA NITROGEN, BLOOD 20 mg/dL (7-18)
[2023-10-06 01:01] LABS: ALANINE AMINOTRANSFERASE 35 U/L (12-78); ALBUMIN 3.6 g/dL (3.4-5.0); ALKALINE PHOSPHATASE 101 U/L (46-116); ASPARTATE AMINOTRANSFERASE 14 U/L (15-37); BILIRUBIN,TOTAL 0.4 mg/dL (0.1-1.0); TOTAL PROTEIN, SERUM 7.5 g/dL (6.4-8.2)
[2023-10-06 01:15] LABS: ALCOHOL, BLOOD (SERUM) < 3 mg/dL (0-10)
[2023-10-06 01:31] LABS: BASOPHILS % (AUTO) 0.3 % (0.0-2.0); LYMPHOCYTES # (AUTO) 1.4 K/uL (1.0-4.8); MEAN CORPUSCULAR HEMOGLOBIN 31.3 pg (26.0-34.0); MONOCYTES # (AUTO) 0.4 K/uL (0.1-1.0); NEUTROPHILS # (AUTO) 5.6 K/uL (1.8-7.7); RED CELL DISTRIBUTION WIDTH 13.6 % (11.5-14.5); WHITE BLOOD COUNT (AUTO) 7.5 K/uL (4.5-11.0)
[2023-10-06 01:36] LABS: HEMATOCRIT 42.9 % (41-53); HEMOGLOBIN 14.4 g/dL (13.5-17.5); LYMPHOCYTES % (AUTO) 18.7 % (22.0-44.0); MEAN CORPUSCULAR HGB CONC 33.6 G/dL (31.0-37.0); MEAN CORPUSCULAR VOLUME 93 fL (80-100); MONOCYTES % (AUTO) 5.2 % (2.0-9.0); NEUTROPHILS % (AUTO) 74.8 % (40.0-70.0); PLATELET COUNT (AUTO) 220 K/uL (150-450)
[2023-10-06] MEDS: ZOLPIDEM TARTRATE 10 MG TABLET PO PRN (03:38)
[2023-10-06 03:43] VITALS: BP 113/54; PULSE 82; RESP 18; TEMP 97
[2023-10-06 11:05] VITALS: BP 140/81; PULSE 81; RESP 16; TEMP 98
[2023-10-06] MEDS: QUEtiapine FUMARATE 100 MG TABLET PO SCH (12:51)
[2023-10-06] MEDS ORDERED: PETROLATUM,WHITE 28 GM JELLY TP PRN (20:00)
[2023-10-06] MEDS ORDERED: LOPERAMIDE HCL 2 MG CAPSULE PO PRN (20:00)
[2023-10-06] MEDS ORDERED: ALBUTEROL SULFATE HFA 90 MCG/PUFF 8 GM INHALER IH PRN (20:00)
[2023-10-06] MEDS ORDERED: MAG HYDROX/ALUMINUM HYD/SIMETH ES 30 ML SUSPENSION UDCUP PO PRN (20:00)
[2023-10-06] MEDS ORDERED: MAGNESIUM HYDROXIDE SUSPENSION 30 ML UDCUP PO PRN (20:00)
[2023-10-06] MEDS ORDERED: OMEPRAZOLE 20 MG CAPSULE PO PRN (20:00)
[2023-10-06] MEDS ORDERED: BENZOCAINE/MENTHOL LOZENGE PO PRN (20:00)
[2023-10-06] MEDS ORDERED: BACITRACIN 28 GM OINTMENT TP PRN (20:00)
[2023-10-06] MEDS ORDERED: CloNIDine HCL 0.1 MG TABLET PO PRN (20:00)
[2023-10-06] MEDS ORDERED: ONDANSETRON HCL 4 MG TABLET PO PRN (20:00)
[2023-10-06] MEDS ORDERED: DOCUSATE SODIUM 100 MG CAPSULE PO PRN (20:00)
[2023-10-06] MEDS: QUEtiapine FUMARATE 200 MG TABLET PO SCH (20:52)
[2023-10-06 21:41] VITALS: BP 138/82; PULSE 84; RESP 18; TEMP 98.2; O2SAT 98
[2023-10-07 09:06] VITALS: BP 138/87; PULSE 78; RESP 18; TEMP 98.5; O2SAT 98
[2023-10-07 21:37] VITALS: BP 149/86; PULSE 79; RESP 16; TEMP 98.2; O2SAT 96
[2023-10-08 11:25] VITALS: BP 119/70; PULSE 80; RESP 17; TEMP 98.4; O2SAT 80
[2023-10-08 23:14] VITALS: BP 130/90; PULSE 96; RESP 18; TEMP 97.7; O2SAT 98
[2023-10-09 10:33] VITALS: BP 147/92; PULSE 81; RESP 18; TEMP 97.1; O2SAT 98
[2023-10-09 20:41] VITALS: BP 156/90; PULSE 78; RESP 18; TEMP 98; O2SAT 96
[2023-10-10 09:12] VITALS: BP 162/93; PULSE 85; RESP 17; TEMP 97.4; O2SAT 99
[2023-10-10 22:23] VITALS: BP_SYST 114; BP_SYST 162; BP_DIAS 88; BP_DIAS 93; PULSE 82; PULSE 85; RESP 17; RESP 18; TEMP 97; TEMP 97.4; O2SAT 98; O2SAT 99
[2023-10-11 08:00] VITALS: BP 161/94; PULSE 60; RESP 18; TEMP 97.1; O2SAT 99
[2023-10-11 23:30] VITALS: RESP 18
[2023-10-12 09:37] VITALS: TEMP 97.2
[2023-10-12 21:46] VITALS: BP 109/86; PULSE 73; RESP 18; TEMP 97.4; O2SAT 95
[2023-10-13 09:33] VITALS: BP 155/95; PULSE 77; RESP 17; TEMP 97.6; O2SAT 97
[2023-10-13 21:04] VITALS: BP 141/87; PULSE 85; RESP 19; TEMP 97.1; O2SAT 98
[2023-10-14 10:31] VITALS: BP 159/96; PULSE 72; RESP 19; TEMP 97.9; O2SAT 100
[2023-10-14 21:40] VITALS: BP 125/82; PULSE 69; RESP 18; TEMP 98.3; O2SAT 99
[2023-10-15 10:41] VITALS: BP 145/70; PULSE 81; RESP 17; TEMP 97.9; O2SAT 98
[2023-10-15 21:13] VITALS: BP 142/86; PULSE 78; RESP 18; TEMP 97.8; O2SAT 98
[2023-10-16 09:00] VITALS: BP 136/94; PULSE 85; RESP 18; TEMP 96.6; O2SAT 97
[2023-10-16 21:35] VITALS: BP 132/84; PULSE 86; RESP 18; TEMP 97.1; O2SAT 97
[2023-10-17 08:00] VITALS: RESP 18
[2023-10-17] MEDS: TUBERCULIN, PURIFIED PROTEIN DERIVATIVE 5 TU/0.1 ML SYRINGE ID ONE (13:46)
[2023-10-17 17:27] VITALS: BP 123/65; PULSE 78; RESP 18; TEMP 98.3; O2SAT 98
[2023-10-17] MEDS: ACETAMINOPHEN 325 MG TABLET PO PRN (17:27)
[2023-10-17 20:45] VITALS: BP 128/81; PULSE 82; RESP 19; TEMP 97.9; O2SAT 98
[2023-10-17 21:48] VITALS: RESP 18; TEMP 97.2
[2023-10-17 22:54] VITALS: BP 140/82; PULSE 75; RESP 20; TEMP 97.6; O2SAT 95
[2023-10-18 10:02] VITALS: BP 136/85; PULSE 80; RESP 18; O2SAT 96
[2023-10-18 20:15] VITALS: BP 146/86; PULSE 98; RESP 18; TEMP 97.1; O2SAT 98
[2023-10-18 21:11] VITALS: BP 110/64; PULSE 98; RESP 18; TEMP 97; O2SAT 96
[2023-10-18] MEDS: IBUPROFEN 600 MG TABLET PO PRN (21:14)
[2023-10-18 22:14] VITALS: RESP 18
[2023-10-19 08:00] VITALS: RESP 18
[2023-10-19] MEDS ORDERED: HALOPERIDOL LACTATE 5 MG/ML VIAL IM PRN (14:00)
[2023-10-19 15:37] VITALS: RESP 18
[2023-10-19 16:37] VITALS: RESP 18
[2023-10-19] MEDS: LORazepam 1 MG TABLET PO PRN (20:30)
[2023-10-19 21:15] VITALS: BP 129/89; PULSE 84; RESP 18; TEMP 97.8; O2SAT 98
[2023-10-20 09:48] VITALS: BP 132/86; PULSE 98; RESP 18; TEMP 97.4
[2023-10-20 22:17] VITALS: RESP 18; TEMP 97
[2023-10-21 10:30] VITALS: BP 154/92; PULSE 74; RESP 18; TEMP 97.4; O2SAT 98
[2023-10-21 20:09] VITALS: BP 125/85; PULSE 88; RESP 18; TEMP 97.7; O2SAT 97
[2023-10-22] MEDS: HALOPERIDOL LACTATE 5 MG/ML VIAL IM ONE (09:46)
[2023-10-22] MEDS: LORazepam 2 MG/ML VIAL IM ONE (09:46)
[2023-10-22] MEDS: DiphenhydrAMINE HCL 50 MG/ML VIAL IM ONE (09:46)
[2023-10-22] MEDS ORDERED: LORazepam 2 MG/ML VIAL ONE (09:47)
[2023-10-22 10:05] VITALS: BP 117/70; PULSE 70; RESP 18; TEMP 97.6; O2SAT 100
[2023-10-22 21:26] VITALS: BP 125/80; PULSE 96; RESP 18; TEMP 97.3; O2SAT 99
[2023-10-23 08:30] VITALS: BP 147/97; PULSE 74; RESP 18; TEMP 97.5; O2SAT 98
[2023-10-23] MEDS: QUEtiapine FUMARATE 200 MG TABLET PO SCH (20:52)
[2023-10-23 21:45] VITALS: BP 121/91; PULSE 92; RESP 18; TEMP 97.1; O2SAT 98
[2023-10-24 08:49] VITALS: BP 136/86; PULSE 83; RESP 18; TEMP 97.5; O2SAT 100
[2023-10-24 20:17] VITALS: BP 122/75; PULSE 81; RESP 18; TEMP 97.5; O2SAT 96
[2023-10-25 09:35] VITALS: BP 153/82; PULSE 83; RESP 18; TEMP 97
[2023-10-25 10:35] VITALS: BP 126/65; PULSE 95; RESP 18; TEMP 97
[2023-10-25 20:34] VITALS: BP 147/75; PULSE 88; RESP 18; TEMP 97.9; O2SAT 96
[2023-10-26] MEDS: ARIPiprazole 10 MG TABLET PO SCH (09:05)
[2023-10-26 09:28] VITALS: BP 145/88; PULSE 81; RESP 18; TEMP 97.9; O2SAT 96
[2023-10-26] MEDS: HALOPERIDOL LACTATE 5 MG/ML VIAL IM ONE (10:36)
[2023-10-26] MEDS: DiphenhydrAMINE HCL 50 MG/ML VIAL IM ONE (10:37)
[2023-10-26] MEDS: LORazepam 2 MG/ML VIAL IM ONE (10:37)
[2023-10-26 20:11] VITALS: BP 117/66; PULSE 78; RESP 18; TEMP 97.5; O2SAT 98
[2023-10-27 09:18] VITALS: BP 151/89; PULSE 75; RESP 18; TEMP 97.2; O2SAT 100
[2023-10-27] MEDS: ARIPiprazole LAUROXIL ER SUSPENSION 882 MG/3.2 ML SYRINGE IM SCH (09:23)
[2023-10-27] MEDS: ARIPiprazole LAUROXIL,SUBMICR. ER SUSPENSION 675 MG/2.4 ML SYRINGE IM ONE (09:23)
[2023-10-27 20:36] VITALS: RESP 18
[2023-10-27 20:39] VITALS: BP 152/84; PULSE 101; RESP 18; TEMP 97.4; O2SAT 95
[2023-10-27 21:36] VITALS: BP 142/78; PULSE 82; RESP 19; TEMP 97.5
[2023-10-28] MEDS: HALOPERIDOL 5 MG TABLET PO PRN (03:58)
[2023-10-28 09:12] VITALS: BP 139/93; PULSE 89; RESP 17; TEMP 98.2; O2SAT 97
[2023-10-28 16:13] VITALS: BP 128/81; PULSE 78; RESP 17; TEMP 98
[2023-10-28 20:27] VITALS: BP 127/83; PULSE 95; RESP 18; TEMP 97.3; O2SAT 98
[2023-10-29 08:36] VITALS: BP 100/76; PULSE 66; RESP 17; TEMP 98.3; O2SAT 100
[2023-10-29 20:42] VITALS: BP 109/78; PULSE 72; RESP 18; TEMP 97.6; O2SAT 98
[2023-10-30 10:55] VITALS: BP 155/61; PULSE 84; RESP 16; TEMP 98.6; O2SAT 96
[2023-10-30 20:11] VITALS: BP 103/62; PULSE 78; RESP 18; TEMP 97.6; O2SAT 95
[2023-10-31 11:06] VITALS: BP 108/63; PULSE 79; RESP 18; TEMP 97.1; O2SAT 72
[2023-10-31 22:11] VITALS: BP 151/95; PULSE 94; RESP 18; TEMP 98.1; O2SAT 97
[2023-11-01 09:00] VITALS: BP 132/75; PULSE 97; RESP 17; TEMP 97.7; O2SAT 96
[2023-11-01 20:56] VITALS: BP 134/78; PULSE 92; RESP 18; TEMP 97.8
[2023-11-02 08:19] VITALS: BP 110/90; PULSE 81; RESP 18; TEMP 98; O2SAT 96
[2023-11-02 13:49] VITALS: BP 131/78; PULSE 87; RESP 17; TEMP 98
[2023-11-02 14:39] VITALS: BP 127/78; PULSE 72; RESP 18; TEMP 98.1
[2023-11-02 22:05] VITALS: BP 130/77; PULSE 86; RESP 18; TEMP 97.9
[2023-11-03 10:03] VITALS: BP 150/88; PULSE 79; RESP 17; TEMP 97.9; O2SAT 98
[2023-11-03 21:15] VITALS: BP 143/96; PULSE 91; RESP 18; TEMP 97.3; O2SAT 96
[2023-11-04 08:35] VITALS: BP 150/99; PULSE 94; RESP 18; TEMP 97.9; O2SAT 97
[2023-11-04 21:10] VITALS: BP 141/98; PULSE 93; RESP 18; TEMP 97.5; O2SAT 98
[2023-11-05 08:00] VITALS: BP 151/97; PULSE 80; RESP 18; TEMP 97; O2SAT 98
[2023-11-05 08:07] VITALS: BP 151/97; PULSE 80; RESP 18; TEMP 97; O2SAT 98
[2023-11-05 20:19] VITALS: BP 147/89; PULSE 88; RESP 18; TEMP 97.4; O2SAT 98
[2023-11-06 08:18] VITALS: RESP 18
[2023-11-06 20:40] VITALS: BP 146/88; PULSE 89; RESP 18; TEMP 97.7; O2SAT 97
[2023-11-06 21:42] VITALS: BP 157/82; PULSE 94; RESP 18; TEMP 97.6
[2023-11-07 08:35] VITALS: BP 147/87; PULSE 81; RESP 18; TEMP 96.9; O2SAT 98
[2023-11-07 17:06] VITALS: BP 134/80; PULSE 78; RESP 18; TEMP 97.6; O2SAT 98
[2023-11-07 21:09] VITALS: BP 160/50; PULSE 89; RESP 18; TEMP 97.3; O2SAT 96
[2023-11-08 08:12] VITALS: BP 134/93; PULSE 74; RESP 17; O2SAT 99
[2023-11-08 21:17] VITALS: RESP 18
[2023-11-09 12:45] VITALS: BP 178/102; PULSE 86; RESP 18; TEMP 97.4; O2SAT 99
[2023-11-09 16:21] VITALS: BP 142/86; PULSE 82; RESP 18; TEMP 97.6
[2023-11-09 17:21] VITALS: RESP 18
[2023-11-09 20:50] VITALS: BP 140/84; PULSE 84; RESP 18; TEMP 97.8
[2023-11-10 10:54] VITALS: BP 116/77; PULSE 94; RESP 18; TEMP 97; O2SAT 97
[2023-11-10 15:07] VITALS: BP 124/76; PULSE 86; RESP 18; TEMP 97.5
[2023-11-10 16:07] VITALS: BP 122/74; PULSE 82; RESP 18; TEMP 97.2
[2023-11-10 20:28] VITALS: BP 158/95; PULSE 93; RESP 18; TEMP 97.8; O2SAT 96
[2023-11-11 09:08] VITALS: BP 147/84; PULSE 93; RESP 18; TEMP 98; O2SAT 98
[2023-11-11 20:50] VITALS: BP 134/86; PULSE 84; RESP 18; TEMP 98.1; O2SAT 96
[2023-11-12 11:21] VITALS: RESP 20
[2023-11-12 20:58] VITALS: RESP 18
[2023-11-13 08:19] VITALS: BP 151/94; PULSE 88; RESP 17; TEMP 97.7; O2SAT 95
[2023-11-13 20:19] VITALS: RESP 18
[2023-11-14 08:13] VITALS: BP 158/83; PULSE 56; RESP 17; TEMP 97.7; O2SAT 95
[2023-11-14 20:37] VITALS: BP 145/90; PULSE 84; RESP 18; TEMP 97.6; O2SAT 95
[2023-11-15 09:27] VITALS: BP 157/97; PULSE 89; RESP 18; TEMP 97.6; O2SAT 100
[2023-11-15 20:41] VITALS: BP 143/84; PULSE 85; RESP 18; TEMP 97.4
[2023-11-16 10:34] VITALS: BP 133/90; PULSE 84; RESP 18; TEMP 97.7
[2023-11-16 21:21] VITALS: BP 134/84; PULSE 80; RESP 18; TEMP 97.8
[2023-11-17 09:38] VITALS: BP 150/88; PULSE 77; RESP 18; TEMP 97.8; O2SAT 98
[2023-11-17] MEDS: ESCITALOPRAM OXALATE 10 MG TABLET PO SCH (09:42)
[2023-11-18 08:00] VITALS: BP 161/98; PULSE 81; RESP 17; TEMP 97.1
[2023-11-18 21:48] VITALS: BP 108/60; PULSE 68; RESP 18; TEMP 97.9; O2SAT 96
[2023-11-18 21:49] VITALS: BP 108/60; PULSE 83; RESP 18; TEMP 97.7
[2023-11-19 08:50] VITALS: BP 129/89; PULSE 85; RESP 18; TEMP 97.3; O2SAT 95
[2023-11-19 22:05] VITALS: BP 156/89; PULSE 79; RESP 18; TEMP 98.4; O2SAT 96
[2023-11-20 08:35] VITALS: BP 153/95; PULSE 86; RESP 17; TEMP 98.1; O2SAT 97
[2023-11-20 14:08] VITALS: BP 163/95; PULSE 94; RESP 18; TEMP 99; O2SAT 100
[2023-11-20 21:23] VITALS: RESP 18
[2023-11-21 08:27] VITALS: BP 143/102; PULSE 89; RESP 17; TEMP 97.4; O2SAT 95
[2023-11-21 19:08] VITALS: BP 139/89; PULSE 87; RESP 18; TEMP 97.6; O2SAT 98
[2023-11-21 20:06] VITALS: RESP 18
[2023-11-21 21:09] VITALS: BP 140/80; PULSE 87; RESP 18; TEMP 97.3; O2SAT 98
[2023-11-22 08:28] VITALS: BP 164/101; PULSE 75; RESP 18; TEMP 98; O2SAT 96
[2023-11-22 21:22] VITALS: BP 149/100; PULSE 81; RESP 18; TEMP 98.2
[2023-11-23 09:11] VITALS: BP 135/75; PULSE 84; RESP 18; TEMP 97.6; O2SAT 96
[2023-11-23 22:10] VITALS: BP 117/69; PULSE 76; RESP 18; TEMP 96.9; O2SAT 96
[2023-11-24 09:14] VITALS: BP 159/80; PULSE 74; RESP 17; TEMP 97.4; O2SAT 96
[2023-11-24 21:01] VITALS: BP 152/72; PULSE 83; RESP 18; TEMP 96.9; O2SAT 96
[2023-11-25 09:36] VITALS: BP 144/90; PULSE 80; RESP 19; TEMP 97.2; O2SAT 98
[2023-11-25 20:43] VITALS: RESP 18
[2023-11-26] MEDS: ARIPIPRAZOLE LAUROXIL 441 MG/1.6 ML IM SCH (09:15)
[2023-11-26 11:43] VITALS: BP 147/81; PULSE 64; RESP 17; TEMP 98.2; O2SAT 97
[2023-11-26 18:01] VITALS: BP 138/76; PULSE 78; RESP 18; TEMP 97.6
[2023-11-26 19:01] VITALS: RESP 18
[2023-11-26 20:31] VITALS: RESP 18
[2023-11-27 08:38] VITALS: BP 132/93; PULSE 79; RESP 18; TEMP 98.4; O2SAT 94
[2023-11-27 20:37] VITALS: BP 120/81; PULSE 82; RESP 18; TEMP 98.3; O2SAT 96
[2023-11-28 10:26] VITALS: BP 141/85; PULSE 90; RESP 18; TEMP 97.9; O2SAT 96
[2023-11-28 21:26] VITALS: BP 134/74; PULSE 80; RESP 18; TEMP 97.8
[2023-11-29 10:02] VITALS: BP 155/95; PULSE 90; RESP 18; TEMP 97; O2SAT 97
[2023-11-29 20:58] VITALS: BP 112/71; PULSE 71; RESP 18; TEMP 97.6
[2023-11-30 09:40] VITALS: BP 122/76; PULSE 78; RESP 18; TEMP 98.2; O2SAT 97
[2023-11-30 22:25] VITALS: BP 137/81; PULSE 76; RESP 18; TEMP 97.6; O2SAT 98
[2023-12-01 08:35] VITALS: BP 145/90; PULSE 84; RESP 18; TEMP 98.4; O2SAT 99
[2023-12-01 21:20] VITALS: RESP 18
[2023-12-02 09:28] VITALS: BP 149/97; PULSE 87; RESP 18; TEMP 98.2; O2SAT 96
[2023-12-02 21:31] VITALS: RESP 18
[2023-12-03 08:31] VITALS: RESP 17
[2023-12-03 20:47] VITALS: BP 143/85; PULSE 69; RESP 18; TEMP 98; O2SAT 95
[2023-12-04 10:31] VITALS: BP 138/88; PULSE 87; RESP 18; TEMP 97.2; O2SAT 95
[2023-12-04 20:00] VITALS: BP 147/80; PULSE 92; RESP 18; TEMP 97.5; O2SAT 95
[2023-12-05 08:41] VITALS: BP 111/67; PULSE 81; RESP 18; TEMP 97.8; O2SAT 99
[2023-12-05 20:22] VITALS: BP 147/81; PULSE 82; RESP 18; TEMP 98.2; O2SAT 98
[2023-12-06 08:52] VITALS: BP 159/73; PULSE 83; RESP 18; TEMP 97.4; O2SAT 97
[2023-12-06 22:23] VITALS: BP 144/83; PULSE 84; RESP 18; TEMP 97.2
[2023-12-07 00:14] VITALS: BP 129/75; PULSE 80; RESP 18; TEMP 97.3
[2023-12-07 01:14] VITALS: RESP 18
[2023-12-07 08:45] VITALS: BP 103/66; PULSE 100; RESP 18; TEMP 98.3; O2SAT 95
[2023-12-08] VITALS: RESP 18
[2023-12-08 09:49] VITALS: BP 151/99; PULSE 87; TEMP 98.1; O2SAT 95
[2023-12-08 22:25] VITALS: PULSE 71; RESP 18; TEMP 97; O2SAT 95
[2023-12-09 08:17] VITALS: BP 114/92; PULSE 71; RESP 18; TEMP 97.2; O2SAT 96
[2023-12-09 21:06] VITALS: RESP 18
[2023-12-10 09:00] VITALS: BP 136/73; PULSE 82; RESP 18; TEMP 99
[2023-12-10 20:39] VITALS: BP 126/84; PULSE 86; RESP 18; TEMP 97.9
[2023-12-11 11:09] VITALS: BP 139/89; PULSE 84; RESP 18; TEMP 98.9; O2SAT 97
[2023-12-11 22:15] VITALS: BP 140/89; PULSE 78; RESP 18; TEMP 97.7; O2SAT 95
[2023-12-12 09:43] VITALS: BP 138/72; PULSE 102; RESP 19; TEMP 97.4; O2SAT 100
[2023-12-12 22:13] VITALS: BP 124/64; PULSE 68; RESP 18; TEMP 98.2; O2SAT 99
[2023-12-13 09:00] VITALS: BP 146/79; PULSE 97; RESP 18; TEMP 98.2
[2023-12-13 21:58] VITALS: BP 129/83; PULSE 74; RESP 18; TEMP 97.8
[2023-12-14 08:34] VITALS: BP 130/78; PULSE 82; RESP 18; TEMP 97.2
[2023-12-14 21:09] VITALS: BP 132/80; PULSE 80; RESP 18; TEMP 97.4
[2023-12-15 08:47] VITALS: BP 136/68; PULSE 82; RESP 19; TEMP 97.1; O2SAT 95
[2023-12-15 20:51] VITALS: RESP 18
[2023-12-16 09:34] VITALS: BP 165/104; PULSE 86; RESP 18; TEMP 97.5; O2SAT 97
[2023-12-16 22:21] VITALS: RESP 18
[2023-12-17 09:51] VITALS: BP 133/92; PULSE 65; RESP 19; TEMP 97; O2SAT 95
[2023-12-17 22:02] VITALS: BP 121/79; PULSE 69; RESP 19; TEMP 97; O2SAT 97
[2023-12-18 09:21] VITALS: BP 147/89; PULSE 67; RESP 17; TEMP 96.9; O2SAT 98
[2023-12-18 20:40] VITALS: BP 138/71; PULSE 72; RESP 18; TEMP 97.1
[2023-12-19 13:30] VITALS: BP 144/86; PULSE 75; RESP 18; TEMP 97.5; O2SAT 97
[2023-12-19 16:10] VITALS: BP 139/78; PULSE 88; RESP 18
[2023-12-19 20:06] VITALS: BP 142/88; PULSE 69; RESP 18; TEMP 97.6
[2023-12-20 08:06] VITALS: BP 146/79; PULSE 71; RESP 18; TEMP 98; O2SAT 96
[2023-12-20 20:55] VITALS: BP 117/61; RESP 18
[2023-12-21 08:07] VITALS: BP 155/79; PULSE 75; RESP 18; TEMP 97.8; O2SAT 100
[2023-12-21 21:27] VITALS: BP 113/66; PULSE 78; RESP 19; TEMP 97.6; O2SAT 98
[2023-12-22 05:30] VITALS: BP 120/80; PULSE 80; RESP 20; TEMP 97.3; O2SAT 98
[2023-12-22 09:54] VITALS: BP 156/97; PULSE 81; RESP 18; TEMP 97.5; O2SAT 95
[2023-12-22 20:00] VITALS: BP 136/87; PULSE 80; RESP 18; TEMP 97.5; O2SAT 95
[2023-12-23 08:58] VITALS: BP 150/87; PULSE 75; RESP 18; TEMP 97.8; O2SAT 97
[2023-12-23 20:07] VITALS: BP 132/84; PULSE 80; RESP 18; TEMP 97.2; O2SAT 98
[2023-12-24 10:34] VITALS: BP 138/81; PULSE 88; RESP 18; TEMP 97.7; O2SAT 96
[2023-12-24 20:38] VITALS: BP 130/80; PULSE 80; RESP 19; TEMP 97.7; O2SAT 98
[2023-12-25 08:30] VITALS: BP 113/72; PULSE 74; RESP 18; TEMP 97.6; O2SAT 98
[2023-12-25 21:47] VITALS: BP 141/63; PULSE 82; RESP 18; TEMP 98.1; O2SAT 98
[2023-12-26] MEDS: ARIPiprazole LAUROXIL ER SUSPENSION 882 MG/3.2 ML SYRINGE IM SCH (11:22)
[2023-12-26 16:49] VITALS: BP 142/91; PULSE 83; RESP 18; O2SAT 98
[2023-12-26 17:50] VITALS: BP 126/72; PULSE 76; RESP 18; TEMP 97.5
[2023-12-26 22:43] VITALS: BP 160/76; PULSE 69; RESP 18; TEMP 97.1; O2SAT 98
[2023-12-27 09:47] VITALS: BP 151/98; PULSE 73; RESP 18; TEMP 97.7; O2SAT 96
[2023-12-27 20:07] VITALS: BP 155/93; PULSE 85; RESP 18; TEMP 97.8; O2SAT 97
[2023-12-27] MEDS ORDERED: ESCI-8 PO (20:30)
[2023-12-27] MEDS ORDERED: QUET200T30 PO (20:30)
[2023-12-28 10:49] VITALS: BP 171/103; PULSE 95; RESP 17; TEMP 97.7
[2023-12-28 20:03] VITALS: BP 143/91; PULSE 75; RESP 19; TEMP 98; O2SAT 97
[2023-12-29 09:33] VITALS: BP 149/80; PULSE 82; RESP 17; TEMP 97.4; O2SAT 97
[2023-12-29 12:43] VITALS: BP 136/74; PULSE 78; RESP 18; TEMP 97.3
[2023-12-29 13:43] VITALS: BP 132/76; PULSE 74; RESP 18; TEMP 97.5
[2023-12-29 20:49] VITALS: BP 141/70; PULSE 81; RESP 18; TEMP 97.7
[2023-12-30 07:02] LABS: COVID AG,FIA SOURCE NASAL SWAB
[2023-12-30 07:28] LABS: SARS-COV2 (COVID) ANTIGEN,FIA Negative (Negative)
[2023-12-30 10:22] VITALS: BP 102/58; PULSE 98; RESP 19; TEMP 97; O2SAT 98
== END 2023-12-30 18:39 | DRG 750 ==
LOC: EMS 21:38 → 3EI 10-06 00:32 → 3EC 10-26 14:31 → 3EI 12-16 11:16
PROVIDERS: ADMIT Psychiatry & Neurology Psychiatry; ATTEND Psychiatry & Neurology Psychiatry
PROC: GZHZZZZ Group Psychotherapy (ICD-10-PCS; principal; 2023-10-07)
PROC: GZ51ZZZ Individual Psychotherapy, Behavioral (ICD-10-PCS; 2023-10-07)
DX: F25.0 Schizoaffective disorder, bipolar type (principal); I10 Essential (primary) hypertension; J44.9 Chronic obstructive pulmonary disease, unspecified; Z20.822 Contact with and (suspected) exposure to COVID-19; K21.9 Gastro-esophageal reflux disease without esophagitis; Z72.0 Tobacco use; Z79.899 Other long term (current) drug therapy
CPT/HCPCS: 71046; 80053; 80307; 85025; 87081; 99285; G0480; J1200; J1630; J2060; Q9967; 36415-L1; 36415-TC